=== PATIENT | male | born 1985 | race African-American/Black ===

== ENCOUNTER 2019-04-03 04:09 | Emergency (ER) | payer SELFPAY ==
[2019-04-03] MEDS ORDERED: ASPIRIN 81 MG TABLET, CHEWABLE PO ONE (06:52)
[2019-04-03] MEDS ORDERED: KETOROLAC TROMETHAMINE INJ/PF 30 MG/1 ML SDV IV ONE (07:15)
--- NOTE | 2019-04-03 07:46 | EKG REPORT ---
SEVERITY:- BORDERLINE ECG - SINUS RHYTHM BORDERLINE T ABNORMALITIES, ANT-LAT LEADS : Confirmed by: Jannette Alvarez MD 03-Apr-2019 07:46:44
--- NOTE | 2019-04-03 07:57 | RADIOLOGY REPORT (SQ) ---
EXAM DESCRIPTION: XR CHEST 2 VIEWS COMPLETED DATE/TME: 04/03/2019 07:15 CLINICAL HISTORY: 33 years, Male, cough, fever, CP COMPARISON: 06/30/2013 NUMBER OF VIEWS: Two TECHNIQUE: Two views of the chest LIMITATIONS: None. FINDINGS: Lungs are clear. The heart is normal in size. There is no pneumothorax or pleural effusion. There is no acute fracture IMPRESSION: No acute cardiopulmonary abnormality copyright 2010 [employer]- All Rights Reserved
[2019-04-03 08:12] VITALS: BP 135/84
--- NOTE | 2019-04-03 14:19 | ER Document Report ---
Entered by ROJAS SAENZ SCRIBE 04/03/19 0715 Acting as scribe for:ARLEEN MORENO DO ED General - General Chief Complaint: Chest Pain Stated Complaint: HEADACHE Time Seen by Provider: 04/03/19 06:51 Mode of Arrival: Ambulatory Information source: Patient Notes: 33-year-old male that presents to the emergency department today with complaints of possible fevers with diaphoresis, productive cough, nasal congestion, neck pain, a headache, and chest pain that is described as a burning only associated with his cough. Patient states his son has had similar symptoms. Patient denies any blurry vision, ear ache, nausea, vomiting, or urinary symptoms. TRAVEL OUTSIDE OF THE [place] IN LAST 30 DAYS: No - Related Data Allergies/Adverse Reactions: acetaminophen [From Vicodin] Adverse Reaction (Verified 06/14/16 21:48) Generalized Itching hydrocodone bitartrate [From Vicodin] Adverse Reaction (Verified 06/14/16 21:48) Generalized Itching Past Medical History - General Information source: Patient - Social History Smoking Status: Never Smoker Cigarette use (# per day): No Chew tobacco use (# tins/day): No Frequency of alcohol use: Heavy - x6-7 beers a day Drug Abuse: None Lives with: Family Family History: Reviewed & Not Pertinent Patient has suicidal ideation: No Patient has homicidal ideation: No Neurological Medical History: Reports: Hx Seizures - epilepsy Musculoskeletal Medical History: Reports Hx Musculoskeletal Trauma Surgical Hx: Negative - Immunizations Immunizations up to date: No Hx Diphtheria, Pertussis, Tetanus Vaccination: Yes Review of Systems - Review of Systems Constitutional: See HPI, Diaphoresis EENT: denies: Blurred vision, Ear pain, Nose congestion Cardiovascular: See HPI, Chest pain - burning only with cough Respiratory: See HPI, Cough Gastrointestinal: denies: Nausea, Vomiting Genitourinary: denies: Burning, Dysuria Male Genitourinary: No symptoms reported Musculoskeletal: No symptoms reported Skin: No symptoms reported Hematologic/Lymphatic: No symptoms reported Neurological/Psychological: See HPI, Headaches -: Yes All other systems reviewed and negative Physical Exam - Vital signs Vitals: Temp Pulse Resp BP Pulse Ox 99.4 F 106 H 18 125/70 95 04/03/19 04:28 04/03/19 04:28 04/03/19 04:28 04/03/19 04:28 04/03/19 04:28 - Notes Notes: PHYSICAL EXAM GENERAL: Alert, interacts well. No acute distress. HEAD: Normocephalic, atraumatic. EYES: Pupils equal, round, and reactive to light. Extraocular movements intact. ENT: Oral mucosa moist, tongue midline. Right turbinate edema, clear rhinnorhea, no nasal septal hematoma, right TM occluded with cerumen, left TM intact. Postnasal drainage. Anterior cervical lymphadenopathy. NECK: Full range of motion. Supple. Trachea midline. LUNGS: Wet sounding cough. Inspiratory rhonchi. No wheezes or rales. No respiratory distress. HEART: Regular rate and rhythm. No murmurs, gallops, or rubs. ABDOMEN: Soft, non-tender. Non-distended. Bowel sounds present in all 4 quadrants. No guarding, rigidity, or rebound. EXTREMITIES: Moves all 4 extremities spontaneously. No edema, radial and dorsalis pedis pulses 2/4 bilaterally. No cyanosis. NEUROLOGICAL: Alert and oriented x3. Normal speech. PSYCH: Normal affect, normal mood. SKIN: Warm, dry, normal turgor. No rashes or lesions noted. Course - Re-evaluation Re-evalutation: 04/03/19 08:09 Chest x-ray unremarkable. EKG is nonischemic. Patient's HEART score is 0. Pain is only present with cough or deep breathing and is associated with fever, productive cough and myalgias as well as rhinorrhea. Son recently had similar symptoms. This is consistent with viral upper respiratory infection with cough. Patient will be treated with nasal steroids, nasal saline rinses, cough suppressant and acetaminophen and ibuprofen. Discharged home. Very low risk for acute coronary syndrome. - Vital Signs Vital signs: Temp Pulse Resp BP Pulse Ox 98.3 F 80 21 H 135/84 H 98 04/03/19 08:26 04/03/19 08:26 04/03/19 08:26 04/03/19 08:26 04/03/19 08:26 - EKG Interpretation by Me Additional EKG results interpreted by me: 04/03/19 08:12 EKG shows sinus rhythm at a rate of 99, normal axis, normal intervals, no ST segment elevations or depressions, there is T wave flattening in 1, 3, aVL, nonspecific T wave inversions in V5 and V6 per my interpretation. Discharge - Discharge Clinical Impression: Viral upper respiratory tract infection with cough Condition: Stable Disposition: HOME, SELF-CARE Additional Instructions: Upper Respiratory Illness You have a viral infection of the respiratory passages -- a "cold." This common infection causes nasal congestion, drainage, and often sore throat and cough. It is caused by a virus and is highly contagious. The disease usually lasts a week or more, though the worst symptoms are usually over in 3 or 4 days. There is no "cure" for the viral infection -- it must run its course. If there is a complication, such as bacterial infection in the nose, sinuses, middle ear, or bronchial tubes, antibiotics may be required, but antibiotics won't affect the virus. If you smoke, you should STOP!! Drink plenty of fluids. A humidifier may help. An expectorant medication or decongestant may make you more comfortable. Use acetaminophen or ibuprofen for fever or aches. See the doctor if fever persists over two or three days, if there is any significant worsening of your symptoms, or if you simply fail to improve as expected. Please use ibuprofen (Motrin or Advil) 600-800 mg every 8 hours as needed for pain or fever. You may also use acetaminophen (Tylenol) 1000 mg every 4-6 hours as needed for pain or fever. Please be aware that many medications contain acetaminophen, do not exceed a total of 1000 mg of acetaminophen every 6 hours. Please use nasal saline rinses such as a NetiPot or NeilMed Sinus Rinses. You may use the Tessalon Perles every 8 hours as needed to suppress her cough, otherwise use [id number]-ozmaodp cough drops. Prescriptions: Benzonatate [Tessalon Perles 100 mg Capsule] 100 mg PO Q8HP PRN #40 capsule PRN Reason: Mometasone Furoate [Nasonex] 1 spray NS Q12 #1 spray.pump Forms: Return to Work I personally performed the services described in the documentation, reviewed and edited the documentation which was dictated to the scribe in my presence, and it accurately records my words and actions.
== END 2019-04-03 08:29 | disposition home or self-care (01) ==
LOC: ER 04:09
DX: J06.9 Acute upper respiratory infection, unspecified (principal); R05 Cough; R07.9 Chest pain, unspecified; R51 Headache; R50.9 Fever, unspecified; R09.81 Nasal congestion; M54.2 Cervicalgia
CPT/HCPCS: 93005; 99285; 96374; 71046; 93010; J1885

== ENCOUNTER 2020-03-06 14:41 | Emergency (ER) | payer SELFPAY ==
--- NOTE | 2020-03-06 15:09 | ER Document Report ---
HPI - HPI Patient complains to provider of: left rib pain Time Seen by Provider: 03/06/20 14:59 Onset: Last week Onset/Duration: Persistent Quality of pain: No pain Context: 34-year-old male presents emergency department with complaints of anterior left- sided lower rib pain when he drinks beer. Reports symptoms for the past week. Reports it hurts when he bends to that side also but only when he drinks beer. Patient has not drank beer today, he just got off work. He is not hurting right now. He denies trauma. He reports his told him to come here and have it checked out. He denies fever vomiting diarrhea. Denies history of cardiac disease. Reports he can drink up to a 12 pack a night. Denies epigastric pain. Associated Symptoms: None Exacerbated by: Other - drinking beer Relieved by: Denies Similar symptoms previously: No Recently seen / treated by doctor: No Past Medical History - General Information source: Patient - Social History Smoking Status: Unknown if Ever Smoked Cigarette use (# per day): No Frequency of alcohol use: Heavy Drug Abuse: None Occupation: moving [employer] Lives with: Family Family History: Reviewed & Not Pertinent Patient has suicidal ideation: No Patient has homicidal ideation: No Pulmonary Medical History: Denies: Hx Asthma Neurological Medical History: Reports: Hx Seizures - epilepsy Renal/ Medical History: Denies: Hx Peritoneal Dialysis Musculoskeletal Medical History: Reports Hx Musculoskeletal Trauma - Immunizations Immunizations up to date: No Hx Diphtheria, Pertussis, Tetanus Vaccination: Yes Vertical Provider Document - CONSTITUTIONAL Agree With Documented VS: Yes Exam Limitations: No Limitations General Appearance: WD/WN, No Apparent Distress - INFECTION CONTROL TRAVEL OUTSIDE OF THE [place] IN LAST 30 DAYS: No - HEENT HEENT: Atraumatic, Normocephalic. negative: Conjuctival Injection - NECK Neck: Normal Inspection, Supple. negative: Lymphadenopathy-Left, Lymphadenopathy-Right - RESPIRATORY Respiratory: Breath Sounds Normal, No Respiratory Distress, Chest Non-Tender - No ecchymosis no swelling no erythema. Respiratory rate even unlabored - CARDIOVASCULAR Cardiovascular: Regular Rate, Regular Rhythm - GI/ABDOMEN Gastrointestinal: Abdomen Soft, Abdomen Non-Tender - MUSCULOSKELETAL/EXTREMETIES Musculoskeletal/Extremeties: MAEW, FROM - NEURO Level of Consciousness: Awake, Alert, Appropriate Motor/Sensory: No Motor Deficit - DERM Integumentary: Warm, Dry, No Rash - No visible rash Course - Re-evaluation Re-evalutation: 03/06/20 15:07 34-year-old male with no prior history presents emergency department complaining of left-sided rib pain but only when he drinks beer. Patient denies epigastric abdominal pain. Patient denies trauma. Reports he is not hurting right now because he just got off work and he has not had a beer to drink. He reports he can drink up to a 12 pack a day. I discussed pancreatitis with patient. He denies symptoms. 03/06/20 15:43 Ribs w/Chest X-Ray 03/06/20 15:04 IMPRESSION: NO PNEUMOTHORAX. NO DISPLACED RIB FRACTURES. - Vital Signs Vital signs: Temp Pulse Resp BP Pulse Ox 98.4 F 86 14 133/79 H 96 03/06/20 14:45 03/06/20 14:45 03/06/20 14:45 03/06/20 14:45 03/06/20 14:45 - Diagnostic Test Radiology reviewed: Image reviewed, Reports reviewed Discharge - Discharge Clinical Impression: Rib pain on left side Condition: Stable Disposition: HOME, SELF-CARE Instructions: Family Physicians / Practices, Use of Emgq-[id number]-Eicvvlo Ibuprofen ([facility]) Additional Instructions: *You have been evaluated for rib pain *Avoid beer, take ibuprofen as indicated for pain *Follow up with a primary care provider within 1 week for recheck *Return to emergency department for difficulty breathing, worsening pain, concerns Monitor your blood pressure. Your blood pressure was elevated today. This may be because you were anxious, in pain or because you need medication. It is important to follow up with your primary care provider for full evaluation. Forms: Elevated Blood Pressure
--- NOTE | 2020-03-06 15:38 | RADIOLOGY REPORT (SQ) ---
EXAM DESCRIPTION: RIBS LEFT W/PA CHEST IMAGES COMPLETED DATE/TIME: 03/06/2020 3:19 pm REASON FOR STUDY: rib pain when he drinks beer COMPARISON: None. TECHNIQUE: Frontal view of the chest and additional views of the left ribs acquired. NUMBER OF VIEWS: Four view. LIMITATIONS: None. FINDINGS: FRONTAL CXR: No pneumothorax. No pleural effusion. No atelectasis or infiltrates. RIBS: No displaced rib fractures. No lytic or blastic bony lesions. OTHER: No other significant finding. IMPRESSION: NO PNEUMOTHORAX. NO DISPLACED RIB FRACTURES. COMMENT: SITE OF TRAUMA/COMPLAINT MARKED/STAMP COMPLETED: NO. TECHNICAL DOCUMENTATION: JOB ID: [id number] 2010 [employer]- All Rights Reserved Reading location - IP/workstation name: [email or web address]
[2020-03-06 15:49] VITALS: BP 129/93
== END 2020-03-06 15:47 | disposition home or self-care (01) ==
LOC: ER 14:41
DX: R07.81 Pleurodynia (principal); F10.10 Alcohol abuse, uncomplicated
CPT/HCPCS: 99283

== ENCOUNTER 2020-06-09 17:29 | Emergency (ER) | payer SELFPAY ==
[2020-06-09 17:35] VITALS: BP 135/76
--- NOTE | 2020-06-09 17:56 | ER Document Report ---
ED Medical Screen (RME) - General Chief Complaint: Allergic Reaction Stated Complaint: RASH,WHEEZING Time Seen by Provider: 06/09/20 17:44 Mode of Arrival: Ambulatory Information source: Patient Notes: 34-year-old male presents to ED for shortness of breath. He states he went to the [facility] brooke and a drink came home drank a drink on the way home and then when he got to the house he was very short of breath sneezing. He has very coarse wheezing to bilateral lungs. I did consult Dr. Sabillon who came and listen to the patient. He agrees the patient needs to be placed on the side that is possible COVID-19 infection. The patient was evaluated during the global Covid 19 pandemic, and that diagnosis was suspected/considered upon their initial presentation. Their evaluation, treatment and testing was consistent with current guidelines for patients who present with complaints or symptoms that may be related to Covid 19. I have greeted and performed a rapid initial assessment of this patient. A comprehensive ED assessment and evaluation of the patient, analysis of test results and completion of medical decision making process will be conducted by an additional ED providers. TRAVEL OUTSIDE OF THE [place] IN LAST 30 DAYS: No - Related Data Allergies/Adverse Reactions: acetaminophen [From Vicodin] Adverse Reaction (Verified 06/09/20 17:49) Generalized Itching hydrocodone bitartrate [From Vicodin] Adverse Reaction (Verified 06/09/20 17:49) Generalized Itching Past Medical History Pulmonary Medical History: Denies: Hx Asthma Neurological Medical History: Reports: Hx Seizures - epilepsy Renal/ Medical History: Denies: Hx Peritoneal Dialysis Musculoskeltal Medical History: Reports Hx Musculoskeletal Trauma - Immunizations Immunizations up to date: No Hx Diphtheria, Pertussis, Tetanus Vaccination: Yes Physical Exam - Vital signs Vitals: Temp Pulse Resp BP Pulse Ox 98.6 F 106 H 20 135/76 H 92 06/09/20 17:33 06/09/20 17:33 06/09/20 17:33 06/09/20 17:33 06/09/20 17:33 Course - Vital Signs Vital signs: Temp Pulse Resp BP Pulse Ox 98.6 F 106 H 20 135/76 H 92 06/09/20 17:33 06/09/20 17:33 06/09/20 17:33 06/09/20 17:33 06/09/20 17:33
[2020-06-09] MEDS ORDERED: ALBUTEROL SULFATE HFA (90 MCG/PUFF) 8 GM MDI (1 MDI/ER DISP) IH ONE (18:02)
[2020-06-09] MEDS ORDERED: ALBUTEROL SULFATE HFA (90 MCG/PUFF) 200 PUFF/8.5 GM MDI IH ONE (18:15)
--- NOTE | 2020-06-09 18:57 | RADIOLOGY REPORT (SQ) ---
EXAM DESCRIPTION: CHEST SINGLE VIEW IMAGES COMPLETED DATE/TIME: 06/09/2020 6:46 pm REASON FOR STUDY: Cough shortness of breath very tight wheezes COMPARISON: 04/03/2019 EXAM PARAMETERS: NUMBER OF VIEWS: One view. TECHNIQUE: Single frontal radiographic view of the chest acquired. RADIATION DOSE: NA LIMITATIONS: None. FINDINGS: LUNGS AND PLEURA: No opacities, masses or pneumothorax. No pleural effusion. MEDIASTINUM AND HILAR STRUCTURES: No masses. Contour normal. HEART AND VASCULAR STRUCTURES: Heart normal in size. Normal vasculature. BONES: No acute findings. HARDWARE: None in the chest. OTHER: No other significant finding. IMPRESSION: 1. No significant interval changes since the prior examination dated 04/03/2019. No acu te findings. TECHNICAL DOCUMENTATION: JOB ID: [id number] 2010 [employer]- All Rights Reserved Reading location - IP/workstation name: [email or web address]
--- NOTE | 2020-06-09 19:43 | ER Document Report ---
ED General - General Chief Complaint: Allergy Symptoms Stated Complaint: RASH,WHEEZING Time Seen by Provider: 06/09/20 17:44 Mode of Arrival: Ambulatory Notes: Patient is a 34-year-old -[place] male with a history of allergies who presents to the emergency department with a chief complaint of acute allergic reaction that occurred prior to arrival. The patient reports that he was at the store and bought some brooke for his . He states he was smelling the brooke pushing them into his nose and shortly after began having a runny nose with severe nasal congestion followed by wheezing. Patient states he took some Benadryl at home prior to coming here. He states since his arrival here he was feeling better. He was given an order for albuterol rescue inhaler in triage which he used. The patient states upon my history that he is asymptomatic and feeling back to baseline. Denies any other pain, complaints or concerns at this time. Patient reports he is never had to be hospitalized for an allergic reaction. He is never had to use an EpiPen. He is never been intubated. TRAVEL OUTSIDE OF THE [place] IN LAST 30 DAYS: No - Related Data Allergies/Adverse Reactions: acetaminophen [From Vicodin] Adverse Reaction (Verified 06/09/20 17:49) Generalized Itching hydrocodone bitartrate [From Vicodin] Adverse Reaction (Verified 06/09/20 17:49) Generalized Itching Past Medical History - General Information source: Patient - Social History Smoking Status: Former Smoker Chew tobacco use (# tins/day): No Frequency of alcohol use: Social Drug Abuse: None Family History: Reviewed & Not Pertinent Patient has homicidal ideation: No Pulmonary Medical History: Denies: Hx Asthma Neurological Medical History: Reports: Hx Seizures - epilepsy Renal/ Medical History: Denies: Hx Peritoneal Dialysis Musculoskeletal Medical History: Reports Hx Musculoskeletal Trauma - Immunizations Immunizations up to date: No Hx Diphtheria, Pertussis, Tetanus Vaccination: Yes Review of Systems - Review of Systems Constitutional: denies: Fever EENT: denies: Throat pain Cardiovascular: denies: Chest pain Respiratory: Wheezing Gastrointestinal: denies: Abdominal pain Genitourinary: denies: Pain Male Genitourinary: denies: Testicular pain Musculoskeletal: denies: Back pain Skin: denies: Change in color Hematologic/Lymphatic: denies: Easy bleeding Neurological/Psychological: denies: Headaches Physical Exam - Vital signs Vitals: Temp Pulse Resp BP Pulse Ox 98.6 F 106 H 20 135/76 H 92 06/09/20 17:33 06/09/20 17:33 06/09/20 17:33 06/09/20 17:33 06/09/20 17:33 - General General appearance: Appears well, Alert In distress: None - HEENT Head: Normocephalic, Atraumatic Eyes: Normal Conjunctiva: Normal Extraocular movements intact: Yes Eyelashes: Normal Pupils: PERRL Ears: Normal External canal: Normal Tympanic membrane: Normal Nasal: Normal Mouth/Lips: Normal Mucous membranes: Normal Pharynx: Normal, Other - Patent airway. Handling secretions well. No sublingual or submental swelling. No trismus. Neck: Normal, Supple - Respiratory Respiratory status: No respiratory distress Chest status: Nontender Breath sounds: Normal Chest palpation: Normal - Cardiovascular Rhythm: Regular Heart sounds: Normal auscultation - Neurological Neuro grossly intact: Yes Cognition: Normal Orientation: AAOx4 - Psychological Associated symptoms: Normal affect, Normal mood - Skin Skin Temperature: Warm Skin Moisture: Dry Skin Color: Normal Course - Re-evaluation Re-evalutation: 06/09/20 19:42 Patient's symptoms completely resolved. He is currently stable and appropriate for discharge and outpatient follow-up. He was given an albuterol rescue inhaler here which she will take home and use every 4-6 hours as needed, 1 to 2 puffs. He has Benadryl at home and will take per label instructions every 6 hours as needed. Counseled him at length regarding the importance of outpatient follow-up and advised to return here or any ER immediately with any new, persistent or worsening symptoms. He verbalized understood and agreed. - Vital Signs Vital signs: Temp Pulse Resp BP Pulse Ox 98.6 F 106 H 20 135/76 H 92 06/09/20 19:00 06/09/20 17:33 06/09/20 17:33 06/09/20 17:33 06/09/20 17:33 Discharge - Discharge Clinical Impression: Allergic reaction Qualifiers: Encounter type: initial encounter Qualified Code(s): T78.40XA - Allergy, unspecified, initial encounter Condition: Stable Disposition: HOME, SELF-CARE Instructions: Acute Allergic Reaction ([facility]) Additional Instructions: Follow-up with your regular doctor in 2 to 3 days for reevaluation. Return here or any ER immediately with any new, persistent or worsening symptoms. Referrals: [facility] [NO LOCAL MD] - Follow up as needed
== END 2020-06-09 19:53 | disposition home or self-care (01) ==
LOC: ER 17:29
DX: T78.40XA Allergy, unspecified, initial encounter (principal); R09.81 Nasal congestion; R09.89 Other specified symptoms and signs involving the circulatory and respiratory systems; R06.2 Wheezing; X58.XXXA Exposure to other specified factors, initial encounter; Z87.891 Personal history of nicotine dependence
CPT/HCPCS: 99283; 71045; J3490

== ENCOUNTER 2020-07-17 06:37 | Emergency (ER) | payer OTHER ==
--- NOTE | 2020-07-17 08:26 | RADIOLOGY REPORT (SQ) ---
EXAM DESCRIPTION: ANKLE RIGHT COMPLETE IMAGES COMPLETED DATE/TIME: 07/17/2020 7:45 am REASON FOR STUDY: painful to palpation and difficult to bear weight COMPARISON: None. NUMBER OF VIEWS: Three views. TECHNIQUE: AP, lateral, and oblique radiographic images acquired of the right ankle. LIMITATIONS: None. FINDINGS: MINERALIZATION: Normal. BONES: No acute fracture or dislocation. No worrisome bone lesions. Tiny calcaneal enthesophyte. JOINTS: No effusions. SOFT TISSUES: Mild soft tissue swelling about the ankle. No radiopaque foreign body. OTHER: No other significant finding. IMPRESSION: Mild soft tissue swelling about the ankle without evidence of acute bony abnormality. TECHNICAL DOCUMENTATION: JOB ID: [id number] 2010 [employer]- All Rights Reserved Reading location - IP/workstation name: [email or web address]
--- NOTE | 2020-07-17 09:01 | ER Document Report ---
Entered by LUPE DE LA FUENTE SCRIBE 07/17/20 0752 Acting as scribe for:MICHELLE VEGAS MD ED Extremity Problem, Lower - General Chief Complaint: Ankle Injury Stated Complaint: ANKLE PAIN Mode of Arrival: Ambulatory Information source: Patient Notes: This 35 year old male patient presents to the ED today via POV for evaluation of a right ankle injury that occurred yesterday. Patient states that he was at work moving furniture and that when he was walking up the stairs, he didn't notice a toy that was left on a step and "rolled" his right ankle. He reports that he did not fall, just "buckled." Denies any other areas of pain. He mentions that the pain was tolerable yesterday, but was worse this morning, so he decided to come to the ED for evaluation. He admits to taking 800 mg Ibuprofen prior to arrival. TRAVEL OUTSIDE OF THE [place] IN LAST 30 DAYS: No - Related Data Allergies/Adverse Reactions: acetaminophen [From Vicodin] Adverse Reaction (Verified 06/09/20 17:49) Generalized Itching hydrocodone bitartrate [From Vicodin] Adverse Reaction (Verified 06/09/20 17:49) Generalized Itching Past Medical History - General Information source: Patient, [facility] Records - Social History Smoking Status: Never Smoker Cigarette use (# per day): No Chew tobacco use (# tins/day): No Smoking Education Provided: No Frequency of alcohol use: None Drug Abuse: None Lives with: Spouse/Significant other Family History: Reviewed & Not Pertinent Patient has suicidal ideation: No Patient has homicidal ideation: No Neurological Medical History: Reports: Hx Seizures - epilepsy Musculoskeletal Medical History: Reports Hx Musculoskeletal Trauma - Immunizations Immunizations up to date: No Hx Diphtheria, Pertussis, Tetanus Vaccination: Yes Review of Systems - Review of Systems Constitutional: No symptoms reported EENT: No symptoms reported Cardiovascular: No symptoms reported Respiratory: No symptoms reported Gastrointestinal: No symptoms reported Genitourinary: No symptoms reported Male Genitourinary: No symptoms reported Musculoskeletal: See HPI, Joint pain Skin: No symptoms reported Hematologic/Lymphatic: No symptoms reported Neurological/Psychological: No symptoms reported -: Yes All other systems reviewed and negative Physical Exam - Vital signs Vitals: Temp Pulse Resp BP Pulse Ox 97.8 F 73 16 133/81 H 100 07/17/20 06:44 07/17/20 06:44 07/17/20 06:44 07/17/20 06:44 07/17/20 06:44 - General General appearance: Appears well, Alert In distress: None - HEENT Head: Normocephalic, Atraumatic Eyes: Normal Pupils: PERRL Neck: Supple - Respiratory Respiratory status: No respiratory distress Chest status: Nontender Breath sounds: Normal Chest palpation: Normal - Cardiovascular Rhythm: Regular Heart sounds: Normal auscultation Murmur: No Friction rub: No Gallop: None auscultated - Abdominal Inspection: Normal Distension: No distension Bowel sounds: Normal Tenderness: Nontender - Abdomen soft Organomegaly: No organomegaly - Back Back: Normal, Nontender - Extremities General lower extremity: Normal inspection Ankle: Tender - Mild tenderness to palpation of lateral malleolus of right ankle, Edema - Mild, Other - Distal pulse and sensation intact. No: Deformity - or crepitus, Ecchymosis, Limited ROM - Neurological Neuro grossly intact: Yes Orientation: AAOx4 [place] Coma Scale Eye Opening: Spontaneous [place] Coma Scale Verbal: Oriented [place] Coma Scale Motor: Obeys Commands [place] Coma Scale Total: 15 - Psychological Associated symptoms: Normal affect, Normal mood - Skin Skin Temperature: Warm Skin Moisture: Dry Skin Color: Normal Course - Re-evaluation Re-evalutation: 07/17/20 08:58 Patient resting comfortably not showing any signs of distress at this time watching television. - Vital Signs Vital signs: Temp Pulse Resp BP Pulse Ox 97.8 F 73 16 133/81 H 100 07/17/20 06:44 07/17/20 06:44 07/17/20 06:44 07/17/20 06:44 07/17/20 06:44 07/17/20 08:58 Vital signs stable - Diagnostic Test Radiology reviewed: Image reviewed, Reports reviewed Radiology results interpreted by me: 07/17/20 08:58 Ankle X-Ray 07/17/20 07:21 IMPRESSION: Mild soft tissue swelling about the ankle without evidence of acute bony abnormality. Plain film x-ray right ankle shows soft tissue swelling no acute fracture dislocation. Discharge - Discharge Clinical Impression: Right ankle sprain Condition: Stable Disposition: HOME, SELF-CARE Instructions: Reinaldo Wrap ([facility]), Sprained Ankle ([facility]) Prescriptions: Ibuprofen [Ibu] 800 mg PO TID PRN 7 Days #21 tablet PRN Reason: prn pain/swelling/fever Forms: Return to Work I personally performed the services described in the documentation, reviewed and edited the documentation which was dictated to the scribe in my presence, and it accurately records my words and actions.
[2020-07-17 09:31] VITALS: BP 128/78
== END 2020-07-17 09:32 | disposition home or self-care (01) ==
LOC: ER 06:37
DX: S43.431A Superior glenoid labrum lesion of right shoulder, initial encounter (principal); M25.571 Pain in right ankle and joints of right foot; X50.0XXA Overexertion from strenuous movement or load, initial encounter; Y99.0 Civilian activity done for income or pay
CPT/HCPCS: 99283